=== PATIENT | female | born 1960 | race Caucasian/White ===

== ENCOUNTER 2020-10-22 12:11 | Inpatient (IN) ==
[2020-10-22] MEDS ORDERED: 0.9 % Sodium Chloride 1,000 ML IVC ONE (12:59)
[2020-10-22 13:23] LABS: Hematocrit 45.8 % (35.3-44.9); Hemoglobin 14.9 g/dL (11.5-15.4); Mean Corpuscular HGB Conc 32.5 g/dL (31.6-35.5); Mean Corpuscular Hemoglobin 28.5 pg (28.0-33.3); Mean Corpuscular Volume 87.7 fL (83.0-100.0); Mean Platelet Volume 8.3 fL (9.4-12.4); Platelet Count 489 K/mcL (140-400); Red Blood Count 5.22 M/mcL (3.82-4.97); Red Cell Distribution Width 14.7 % (11.5-14.5); White Blood Count 11.3 K/mcL (4.3-11.1)
[2020-10-22 13:24] LABS: Bilirubin,Urine Small (Negative); Blood,Urine Negative (Negative); Clarity,Urine Turbid (Clear); Color,Urine Dark-Yellow (Yellow); Glucose,Urine (UA) Normal (Normal); Hyaline Casts,Urine Many per lpf (None Seen); Ketones,Urine Trace mg/dL (Negative); Leukocyte Esterase,Urine Trace (Negative); Mucus,Urine Many per lpf (None-Few); Nitrite,Urine Negative (Negative); Protein,Urine 200 mg/dL (Neg-Trace); Renal Epithelial Cells,Urine Many per hpf (None-Few); Specific Gravity,Urine > 1.030 (1.010-1.025); Squamous Epithelial Cell,Urine Moderate per hpf (None-Few); Transitional Epi Cells,Urine Few per hpf (None-Few)
[2020-10-22 13:39] LABS: Alanine Aminotransferase 12 Units/L (7-52); Albumin 3.6 g/dL (3.5-5.7); Alkaline Phosphatase 85 Units/L (34-104); Aspartate Amino Transferase 22 Units/L (13-39); BUN/Creatinine Ratio 15 (6-26); Bilirubin,Direct 0.1 mg/dL (0.0-0.2); Bilirubin,Indirect 0.5 mg/dL (0.0-1.0); Bilirubin,Total 0.6 mg/dL (0.3-1.0); Blood Urea Nitrogen 14 mg/dL (8-23); Calcium 9.4 mg/dL (8.6-10.3); Carbon Dioxide 32 mEq/L (23-29); Chloride 100 mEq/L (98-107); Globulin 3.5 g/dL (2.4-3.5); Glucose 118 mg/dL (70-105); Lipase 11 Units/L (11-82); Osmolality,Calculated 292 (280-300); Potassium 3.9 mEq/L (3.5-5.1); Sodium 140 mEq/L (136-145); Total Protein 7.1 g/dL (6.4-8.9); eGFR For African Americans > 60 (> 60); eGFR For Non-African Americans > 60 (> 60)
[2020-10-22] MEDS ORDERED: Acetaminophen 325 MG TABLET PO PRN (17:16)
[2020-10-22] MEDS ORDERED: Naloxone 0.4 MG/ML INJ IVP PRN (17:16)
[2020-10-22] MEDS ORDERED: Ondansetron 4 MG/2 ML VIAL IVP PRN (17:16)
[2020-10-22 17:54] LABS: Lactate Dehydrogenase 237 Units/L (140-271); Phosphorous 3.5 mg/dL (2.7-4.5); Uric Acid 6.8 mg/dL (2.3-7.6)
[2020-10-22] MEDS: Ringers Solution, Lactated 1,000 ML IVC SCH (20:58)
[2020-10-23 04:05] LABS: Hemoglobin 13.7 g/dL (11.5-15.4); Mean Corpuscular HGB Conc 32.6 g/dL (31.6-35.5); Mean Platelet Volume 8.3 fL (9.4-12.4); Platelet Count 472 K/mcL (140-400); Red Blood Count 4.72 M/mcL (3.82-4.97); Red Cell Distribution Width 14.9 % (11.5-14.5)
[2020-10-23 04:14] LABS: INR 1.2; Prothrombin Time 13.6 Seconds (9.4-12.1)
[2020-10-23 04:20] LABS: BUN/Creatinine Ratio 23 (6-26); Blood Urea Nitrogen 19 mg/dL (8-23); Calcium 8.9 mg/dL (8.6-10.3); Carbon Dioxide 32 mEq/L (23-29); Chloride 102 mEq/L (98-107); Glucose 103 mg/dL (70-105); Magnesium 2.4 mg/dL (1.6-2.6); Osmolality,Calculated 297 (280-300); Sodium 142 mEq/L (136-145); eGFR For African Americans > 60 (> 60); eGFR For Non-African Americans > 60 (> 60)
[2020-10-23 04:32] LABS: Carcinoembryonic Antigen 1.9 ng/mL (Less than 5.0)
[2020-10-23] MEDS: Ringers Solution, Lactated 1,000 ML IVC SCH (07:46)
[2020-10-23] MEDS ORDERED: Clindamycin 600 MG/50 ML 600 MG/50 ML IV.SOLN IVPB ONE ×2 (10:05→21:06)
[2020-10-23] MEDS ORDERED: Clindamycin 600 MG/50 ML 600 MG/50 ML IV.SOLN IVPB STA (10:11)
[2020-10-23] MEDS ORDERED: Ringers Solution, Lactated 1,000 ML IVC SCH (14:15)
[2020-10-23] MEDS ORDERED: Lidocaine -MPF 4% 5 ML AMPUL ONE (19:42)
[2020-10-23] MEDS ORDERED: *HR* Rocuronium Bromide 50 MG/5 ML VIAL ONE ×2 (19:42→21:47)
[2020-10-23] MEDS ORDERED: Lidocaine -MPF 2% 2 ML VIAL ONE (19:42)
[2020-10-23] MEDS ORDERED: *HR* Succinylcholine 200 MG/10 ML VIAL IVP ONE (19:42)
[2020-10-23] MEDS ORDERED: *HR* Propofol 200 MG/20 ML VIAL IVP ONE (19:43)
[2020-10-23] MEDS ORDERED: *HR* Midazolam HCl 2 MG/2 ML VIAL ONE (19:43)
[2020-10-23] MEDS ORDERED: *HR* FentaNYL (PF) 100 MCG/2 ML VIAL ONE (19:43)
[2020-10-23] MEDS ORDERED: Acetaminophen IV 1,000 MG/100 ML BAG IVPB ONE (20:28)
[2020-10-23] MEDS ORDERED: Ondansetron 4 MG/2 ML VIAL ONE (21:12)
[2020-10-23] MEDS ORDERED: Dexamethasone 4 MG/ML VIAL ONE (21:12)
[2020-10-23] MEDS ORDERED: *HR* Phenylephrine 10 MG/ML VIAL ONE (21:20)
[2020-10-23] MEDS ORDERED: *HR* HYDROMORPHONE 2 MG/ML VIAL ONE (21:27)
[2020-10-23] MEDS ORDERED: Sugammadex Sodium 200 MG/2 ML VIAL IV ONE (21:44)
[2020-10-23] MEDS ORDERED: *HR* Metoprolol 5 MG/5 ML VIAL IVP ONE (22:09)
[2020-10-23] MEDS ORDERED: Morphine PCA 30 MG/ 30 ML 30 ML PCA.VIAL IVC PRN (23:52)
[2020-10-24] MEDS ORDERED: *HR* HYDROmorphone 2 MG TABLET PO PRN (00:22)
[2020-10-24] MEDS ORDERED: *HR* Labetalol 20 MG/4 ML SYRINGE IVP PRN (00:22)
[2020-10-24] MEDS ORDERED: Pregabalin 75 MG CAPSULE PO ONE (00:22)
[2020-10-24] MEDS ORDERED: *HR* OxyCODONE Immed Rel 5 MG TABLET PO PRN (00:22)
[2020-10-24] MEDS ORDERED: *HR* HYDROmorphone (PF) 1 MG/ML SYRINGE ONE (00:26)
[2020-10-24] MEDS: *HR* HYDROmorphone (PF) 1 MG/ML SYRINGE IVP PRN ×4 (00:27→01:05)
[2020-10-24] MEDS ORDERED: Ringers Solution, Lactated 1,000 ML IVC SCH (01:26)
[2020-10-24] MEDS ORDERED: Naloxone 0.4 MG/ML INJ IVP PRN (01:26)
[2020-10-24] MEDS ORDERED: Morphine PCA 30 MG/ 30 ML 30 ML PCA.VIAL IVC PRN (01:26)
[2020-10-24] MEDS ORDERED: Ondansetron 4 MG/2 ML VIAL IVP PRN (01:26)
[2020-10-24] MEDS ORDERED: 0.9 % Sodium Chloride 1,000 ML IVC SCH (02:00)
[2020-10-24 05:41] LABS: Hematocrit 38.3 % (35.3-44.9); Hemoglobin 12.2 g/dL (11.5-15.4); Mean Corpuscular HGB Conc 31.9 g/dL (31.6-35.5); Mean Corpuscular Hemoglobin 29.1 pg (28.0-33.3); Mean Corpuscular Volume 91.4 fL (83.0-100.0); Mean Platelet Volume 8.6 fL (9.4-12.4); Platelet Count 435 K/mcL (140-400); Red Blood Count 4.19 M/mcL (3.82-4.97); Red Cell Distribution Width 14.9 % (11.5-14.5)
[2020-10-24 05:46] LABS: White Blood Count 20.4 K/mcL (4.3-11.1)
[2020-10-24] MEDS ORDERED: Acetaminophen IV 1,000 MG/100 ML BAG IVPB SCH ×2 (06:00)
[2020-10-24] MEDS ORDERED: *HR* Heparin 5,000 UNIT/ML VIAL SQ SCH (06:00)
[2020-10-24] MEDS ORDERED: MetroNIDAZOLE 500 MG/100 ML 500 MG/100 ML BAG IVPB SCH ×2 (06:00)
[2020-10-24] MEDS ORDERED: Pantoprazole 40 MG VIAL IVP SCH (06:00)
[2020-10-24 06:15] LABS: Alanine Aminotransferase 8 Units/L (7-52); Albumin 2.5 g/dL (3.5-5.7); Albumin/Globulin Ratio 1.2 (1.1-2.2); Alkaline Phosphatase 60 Units/L (34-104); Aspartate Amino Transferase 15 Units/L (13-39); BUN/Creatinine Ratio 31 (6-26); Bilirubin,Direct 0.2 mg/dL (0.0-0.2); Bilirubin,Indirect 0.3 mg/dL (0.0-1.0); Bilirubin,Total 0.5 mg/dL (0.3-1.0); Blood Urea Nitrogen 23 mg/dL (8-23); Calcium 7.7 mg/dL (8.6-10.3); Carbon Dioxide 26 mEq/L (23-29); Chloride 107 mEq/L (98-107); Globulin 2.1 g/dL (2.4-3.5); Glucose 109 mg/dL (70-105); Magnesium 1.9 mg/dL (1.6-2.6); Osmolality,Calculated 294 (280-300); Potassium 4.1 mEq/L (3.5-5.1); Sodium 140 mEq/L (136-145); Total Protein 4.6 g/dL (6.4-8.9); eGFR For African Americans > 60 (> 60); eGFR For Non-African Americans > 60 (> 60)
[2020-10-24] MEDS: Pantoprazole 40 MG VIAL IVP SCH ×2 (08:01→17:42)
[2020-10-24] MEDS: *HR* Heparin 5,000 UNIT/ML VIAL SQ SCH ×2 (08:01→17:42)
[2020-10-24] MEDS ORDERED: Gabapentin 300 MG CAPSULE PO SCH (09:00)
[2020-10-24] MEDS: Gabapentin 300 MG CAPSULE PO SCH ×3 (10:58→20:34)
[2020-10-24] MEDS: Acetaminophen IV 1,000 MG/100 ML BAG IVPB SCH ×2 (14:30→20:31)
[2020-10-24] MEDS: MetroNIDAZOLE 500 MG/100 ML 500 MG/100 ML BAG IVPB SCH ×2 (14:57→20:30)
[2020-10-25] MEDS: Acetaminophen IV 1,000 MG/100 ML BAG IVPB SCH ×4 (01:37→20:37)
[2020-10-25] MEDS: MetroNIDAZOLE 500 MG/100 ML 500 MG/100 ML BAG IVPB SCH ×4 (01:38→20:38)
[2020-10-25 05:37] LABS: Hematocrit 33.2 % (35.3-44.9); Mean Corpuscular HGB Conc 31.9 g/dL (31.6-35.5); Mean Corpuscular Hemoglobin 29.1 pg (28.0-33.3); Mean Corpuscular Volume 91.2 fL (83.0-100.0); Mean Platelet Volume 8.4 fL (9.4-12.4); Platelet Count 403 K/mcL (140-400); Red Blood Count 3.64 M/mcL (3.82-4.97); White Blood Count 10.9 K/mcL (4.3-11.1)
[2020-10-25 05:38] LABS: Hemoglobin 10.6 g/dL (11.5-15.4)
[2020-10-25] MEDS: Pantoprazole 40 MG VIAL IVP SCH ×2 (05:39→17:38)
[2020-10-25] MEDS: *HR* Heparin 5,000 UNIT/ML VIAL SQ SCH ×2 (05:39→17:38)
[2020-10-25 06:04] LABS: BUN/Creatinine Ratio 26 (6-26); Blood Urea Nitrogen 26 mg/dL (8-23); Calcium 7.7 mg/dL (8.6-10.3); Carbon Dioxide 26 mEq/L (23-29); Chloride 106 mEq/L (98-107); Glucose 100 mg/dL (70-105); Osmolality,Calculated 291 (280-300); Potassium 3.1 mEq/L (3.5-5.1); Sodium 138 mEq/L (136-145); eGFR For African Americans > 60 (> 60); eGFR For Non-African Americans 57 (> 60)
[2020-10-25] MEDS: Gabapentin 300 MG CAPSULE PO SCH ×3 (07:39→20:41)
[2020-10-26] MEDS: Acetaminophen IV 1,000 MG/100 ML BAG IVPB SCH ×2 (01:21→09:15)
[2020-10-26] MEDS: MetroNIDAZOLE 500 MG/100 ML 500 MG/100 ML BAG IVPB SCH ×2 (01:27→09:59)
[2020-10-26 05:10] LABS: BUN/Creatinine Ratio 23 (6-26); Blood Urea Nitrogen 19 mg/dL (8-23); Calcium 7.5 mg/dL (8.6-10.3); Carbon Dioxide 28 mEq/L (23-29); Chloride 103 mEq/L (98-107); Glucose 114 mg/dL (70-105); Osmolality,Calculated 285 (280-300); Potassium 2.9 mEq/L (3.5-5.1); Sodium 136 mEq/L (136-145); eGFR For African Americans > 60 (> 60); eGFR For Non-African Americans > 60 (> 60)
[2020-10-26] MEDS: Pantoprazole 40 MG VIAL IVP SCH (05:39)
[2020-10-26] MEDS: *HR* Heparin 5,000 UNIT/ML VIAL SQ SCH (05:39)
[2020-10-26] MEDS: Gabapentin 300 MG CAPSULE PO SCH (09:16)
[2020-10-26 13:52] VITALS: BP 118/79
== END 2020-10-26 15:11 | disposition home or self-care (01) | DRG 330 ==
LOC: 3ANU 12:11 → EMEROOARM 12:11 → SUATTDRO 18:15 → 3ANU 19:57
PROVIDERS: ADMIT Internal Medicine; ATTEND Internal Medicine

== ENCOUNTER 2021-01-26 06:10 | Inpatient (IN) ==
[2021-01-26] MEDS ORDERED: cefOXitin 2,000 MG in Water for inj. (sterile) 20 ML IVP ONE (06:25)
[2021-01-26] MEDS ORDERED: Ringers Solution, Lactated 1,000 ML IVC SCH (06:30)
[2021-01-26] MEDS ORDERED: *HR* HYDROmorphone PF 0.5 MG/0.5 ML SYRINGE IVP PRN (07:16)
[2021-01-26] MEDS ORDERED: *HR* HYDROcodone/Acet 5/325 mg TABLET PO PRN (07:16)
[2021-01-26] MEDS ORDERED: Ondansetron 4 MG/2 ML VIAL IVP PRN ×2 (07:16→14:40)
[2021-01-26] MEDS ORDERED: *HR* Labetalol 20 MG/4 ML SYRINGE IVP PRN (07:16)
[2021-01-26] MEDS ORDERED: *HR* Succinylcholine 200 MG/10 ML VIAL IVP ONE (07:18)
[2021-01-26] MEDS ORDERED: *HR* FentaNYL (PF) 100 MCG/2 ML VIAL ONE (07:18)
[2021-01-26] MEDS ORDERED: *HR* Midazolam HCl 2 MG/2 ML VIAL ONE (07:18)
[2021-01-26] MEDS ORDERED: *HR* Rocuronium Bromide 50 MG/5 ML VIAL ONE ×2 (07:18→09:47)
[2021-01-26] MEDS ORDERED: *HR* Propofol 200 MG/20 ML VIAL IVP ONE (07:18)
[2021-01-26] MEDS ORDERED: Lidocaine -MPF 2% 2 ML VIAL ONE (07:18)
[2021-01-26] MEDS ORDERED: Lidocaine HCL 4 ML Topical Solution (Laryng-O-Jet Kit Sterile Pak) TP ONE (07:19)
[2021-01-26 07:47] LABS: Basophils # 0.1 K/mcL (0.0-0.2); Basophils % 0.9 %; Eosinophils # 0.2 K/mcL (0.0-0.6); Hematocrit 39.5 % (35.3-44.9); Hemoglobin 12.1 g/dL (11.5-15.4); Lymphocytes % 18.9 %; Mean Corpuscular HGB Conc 30.6 g/dL (31.6-35.5); Mean Corpuscular Hemoglobin 27.1 pg (28.0-33.3); Mean Corpuscular Volume 88.4 fL (83.0-100.0); Monocytes # 0.5 K/mcL (0.0-1.3); Monocytes % 8.9 %; Neutrophils # 3.7 K/mcL (1.6-8.9); Platelet Count 279 K/mcL (140-400); Red Blood Count 4.47 M/mcL (3.82-4.97); Segmented Neutrophils % 67.3 %; White Blood Count 5.5 K/mcL (4.3-11.1)
[2021-01-26 08:06] LABS: BUN/Creatinine Ratio 13 (6-26); Blood Urea Nitrogen 13 mg/dL (8-23); Calcium 9.3 mg/dL (8.6-10.3); Carbon Dioxide 27 mEq/L (23-29); Chloride 104 mEq/L (98-107); Glucose 100 mg/dL (70-105); Osmolality,Calculated 286 (280-300); Potassium 3.7 mEq/L (3.5-5.1); Sodium 138 mEq/L (136-145); eGFR For African Americans > 60 (> 60); eGFR For Non-African Americans 57 (> 60)
[2021-01-26] MEDS ORDERED: *HR* HYDROMORPHONE 2 MG/ML VIAL ONE (12:01)
[2021-01-26] MEDS ORDERED: Morphine Sulfate Oral CONC 10 MG/0.5 ML ORAL.SYG SL PRN (14:40)
[2021-01-26] MEDS ORDERED: Naloxone 0.4 MG/ML INJ IVP PRN (14:40)
[2021-01-26] MEDS ORDERED: *HR* OxyCODONE Immed Rel 5 MG TABLET PO PRN (14:40)
[2021-01-26] MEDS: 0.9 % Sodium Chloride 1,000 ML IVC SCH (15:15)
[2021-01-26] MEDS: Acetaminophen IV 1,000 MG/100 ML BAG IVPB SCH ×2 (17:16→23:30)
[2021-01-26] MEDS: cefOXitin 1,000 MG in Water for inj. (sterile) 10 ML IVP SCH ×2 (17:18→23:29)
[2021-01-26] MEDS: Ketorolac 30 MG/ML VIAL IVP SCH ×2 (17:50→23:29)
[2021-01-26] MEDS ORDERED: Artificial Tears SOLN 15 ML BOTTLE BOTH EYES ONE (21:00)
[2021-01-26] MEDS ORDERED: Erythromycin OPTH Oint BOTH EYES ONE (21:00)
[2021-01-27] MEDS: 0.9 % Sodium Chloride 1,000 ML IVC SCH (05:02)
[2021-01-27] MEDS: Acetaminophen IV 1,000 MG/100 ML BAG IVPB SCH ×4 (05:03→23:41)
[2021-01-27] MEDS: Ketorolac 30 MG/ML VIAL IVP SCH ×4 (05:03→23:41)
[2021-01-27 05:45] LABS: Basophils % 0.2 %; Hematocrit 36.3 % (35.3-44.9); Hemoglobin 11.5 g/dL (11.5-15.4); Immature Granulocytes % 0.2 % (0-4); Lymphocytes % 8.7 %; Mean Corpuscular HGB Conc 31.7 g/dL (31.6-35.5); Mean Corpuscular Hemoglobin 27.8 pg (28.0-33.3); Mean Corpuscular Volume 87.9 fL (83.0-100.0); Monocytes # 0.8 K/mcL (0.0-1.3); Monocytes % 7.5 %; Neutrophils # 9.2 K/mcL (1.6-8.9); Platelet Count 309 K/mcL (140-400); Red Blood Count 4.13 M/mcL (3.82-4.97); Red Cell Distribution Width 14.1 % (11.5-14.5); Segmented Neutrophils % 83.4 %
[2021-01-27 06:04] LABS: Calcium 8.3 mg/dL (8.6-10.3); Potassium 4.2 mEq/L (3.5-5.1)
[2021-01-27] MEDS: Erythromycin OPTH Oint LEFT EYE SCH ×3 (08:42→17:01)
[2021-01-27] MEDS: Artificial Tears SOLN 15 ML BOTTLE BOTH EYES SCH ×4 (08:46→20:10)
[2021-01-27] MEDS: cefOXitin 1,000 MG in Water for inj. (sterile) 10 ML IVP SCH ×3 (08:47→23:40)
[2021-01-27] MEDS: Pantoprazole 40 MG VIAL IVP SCH (08:48)
[2021-01-27] MEDS: *HR* Heparin 5,000 UNIT/ML VIAL SQ SCH ×2 (12:43→18:07)
[2021-01-28 02:55] VITALS: BP 121/81
[2021-01-28 05:33] LABS: Basophils # 0.1 K/mcL (0.0-0.2); Basophils % 0.8 %; Eosinophils # 0.1 K/mcL (0.0-0.6); Eosinophils % 1.3 %; Hematocrit 33.2 % (35.3-44.9); Hemoglobin 10.5 g/dL (11.5-15.4); Immature Granulocytes % 0.3 % (0-4); Lymphocytes # 1.6 K/mcL (0.6-4.6); Lymphocytes % 25.2 %; Mean Corpuscular HGB Conc 31.6 g/dL (31.6-35.5); Mean Corpuscular Hemoglobin 27.8 pg (28.0-33.3); Mean Corpuscular Volume 87.8 fL (83.0-100.0); Mean Platelet Volume 9.3 fL (9.4-12.4); Monocytes # 0.6 K/mcL (0.0-1.3); Monocytes % 9.3 %; Platelet Count 258 K/mcL (140-400); Red Blood Count 3.78 M/mcL (3.82-4.97); Red Cell Distribution Width 14.3 % (11.5-14.5); Segmented Neutrophils % 63.1 %; White Blood Count 6.3 K/mcL (4.3-11.1)
[2021-01-28 05:48] LABS: Calcium 8.4 mg/dL (8.6-10.3); Magnesium 2.1 mg/dL (1.6-2.6); Phosphorous 2.7 mg/dL (2.7-4.5)
[2021-01-28] MEDS: *HR* Heparin 5,000 UNIT/ML VIAL SQ SCH (06:07)
[2021-01-28] MEDS: Ketorolac 30 MG/ML VIAL IVP SCH (06:08)
[2021-01-28] MEDS: Acetaminophen IV 1,000 MG/100 ML BAG IVPB SCH (06:09)
[2021-01-28] MEDS ORDERED: 0.9 % Sodium Chloride 1,000 ML IVC ONE (07:04)
[2021-01-28] MEDS: Pantoprazole 40 MG VIAL IVP SCH (07:46)
[2021-01-28] MEDS: cefOXitin 1,000 MG in Water for inj. (sterile) 10 ML IVP SCH (07:46)
[2021-01-28] MEDS: Erythromycin OPTH Oint LEFT EYE SCH (07:47)
[2021-01-28] MEDS: Artificial Tears SOLN 15 ML BOTTLE BOTH EYES SCH (07:47)
[2021-01-28] MEDS ORDERED: *HR* OxyCODONE/APAP 5/325 TABLET PO PRN (07:54)
[2021-01-28] MEDS ORDERED: Acetaminophen 325 MG TABLET PO PRN (07:55)
[2021-01-28] MEDS ORDERED: Ibuprofen 800 MG TABLET PO SCH (08:00)
== END 2021-01-28 13:31 | disposition home or self-care (01) | DRG 331 ==
LOC: SAMDAY 06:10 → 3ANU 13:44
PROVIDERS: ADMIT Surgery; ATTEND Surgery